=== PATIENT | male | born 1980 | race Caucasian/White ===

== ENCOUNTER 2017-01-25 10:52 | Emergency (ER) | payer SELFPAY ==
[2017-01-25] MEDS ORDERED: DIPH/PERTUSS(ACELL)/TETANUS VAC/PF 0.5 ML SYR (>=10YO) IM ONE (11:18)
[2017-01-25] MEDS ORDERED: LORAZEPAM INJ 2 MG/1 ML VIAL IV ONE (11:19)
[2017-01-25] MEDS ORDERED: LIDOCAINE 1%/EPINEPHRINE INJ 20 ML VIAL INJ ONE (11:21)
--- NOTE | 2017-01-25 11:27 | ER Document Report ---
ED General - General Stated Complaint: POSSIBLE SEIZURE Time Seen by Provider: 01/25/17 11:06 Mode of Arrival: Medic Information source: Patient, Relative, Emergency Med Personnel Notes: This is a 36-year-old man with a history of hypertension brought in by EMS after a witnessed seizure at home. Patient's parents state that they were driving home from [place] when the patient started complaining of numbness in both hands. While they were at home, the patient passed out and had tonic- clonic activity. There was a laceration to the left face. EMS was called to the home and the patient was found to be hypertensive with a blood pressure of 220/120. Patient was given labetalol IV in the field and he was transported here. Past medical history: Hypertension Medications: Lisinopril (ran out) Allergies: None Fam History: Positive for blood pressure, no history of seizure - HPI Onset: Just prior to arrival Onset/Duration: Sudden Quality of pain: No pain Severity: None Pain Level: Denies Associated symptoms: denies: Chest pain, Fever, Headache, Shortness of breath Exacerbated by: Denies Relieved by: Denies Similar symptoms previously: No Recently seen / treated by doctor: No Past Medical History - General Information source: Patient - Social History Smoking Status: Never Smoker Cigarette use (# per day): No Chew tobacco use (# tins/day): No Frequency of alcohol use: Occasional Drug Abuse: None Lives with: Family Family History: Reviewed & Not Pertinent Patient has suicidal ideation: No Patient has homicidal ideation: No - Medical History Medical History: Negative Surgical Hx: Negative Review of Systems - Review of Systems Constitutional: denies: Chills, Fever EENT: No symptoms reported Cardiovascular: No symptoms reported Respiratory: No symptoms reported Gastrointestinal: No symptoms reported Genitourinary: No symptoms reported Male Genitourinary: No symptoms reported Musculoskeletal: See HPI Skin: See HPI Hematologic/Lymphatic: No symptoms reported Neurological/Psychological: See HPI Physical Exam - Vital signs Vitals: Temp Resp BP Pulse Ox 98.8 F 28 H 158/116 H 98 01/25/17 10:58 01/25/17 10:58 01/25/17 10:58 01/25/17 10:58 Notes: Physical exam: GENERAL:36-year-old man, alert and oriented 3, diaphoretic and hypertensive HEAD: Left supraorbital laceration: A stellate laceration approximately 4 cm, irregular EYES: Pupils equal round and reactive to light, extraocular movements intact, sclera anicteric, conjunctiva are normal. ENT: TMs normal, nares patent, oropharynx clear without exudates. Moist mucous membranes. NECK:collar in place LUNGS: Breath sounds clear to auscultation bilaterally and equal. No wheezes rales or rhonchi. HEART: Regular rate and rhythm without murmurs, rubs or gallops. ABDOMEN: Soft, normoactive bowel sounds. No tenderness to palpation. No guarding, no rebound. No masses appreciated. EXTREMITIES: Normal range of motion, no pitting or edema. No clubbing or cyanosis. NEUROLOGICAL: Cranial nerves II through XII grossly intact. Normal speech, however 5, sensory grossly intact PSYCH: Normal mood, normal affect. SKIN: Bruising to the lower extremity. Course - Re-evaluation Re-evalutation: 01/25/17 20:22 Note: I had a extensive conversation with the patient. He initially denied having any significant alcohol intake. However, he did appear very jittery on arrival and this improved after IV Ativan. Later on in our conversation he did admit to drinking much before losing his job and he recently lost his job and has not been drinking as much. I have advised that he should follow-up at [facility] for detox and I have given him a prescription for Librium. Additionally, I have given him prescriptions for thiamine and folic acid. His blood pressure, he is previously been on lisinopril and I will continue this medicine. The patient is accompanied by his parents are at the bedside during my conversation. As far as the laceration: I was able to get a good approximation of the irregularly-shaped wound. I dressed the wound and have advised him to return in 7 days for suture removal. 01/25/17 20:24 - Vital Signs Vital signs: Temp Pulse Resp BP Pulse Ox 98.8 F 13 142/105 H 99 01/25/17 10:58 01/25/17 14:49 01/25/17 14:49 01/25/17 14:49 - Laboratory Result Diagrams: 01/25/17 11:00 01/25/17 11:00 Laboratory results interpreted by me: 01/25/17 01/25/17 01/25/17 11:00 11:00 12:15 RBC 4.01 L Hgb 12.9 L RDW 19.2 H Lymphocytes % 6.9 L Monocytes % 13.9 H Absolute Lymphocytes 0.4 L Sodium 134.9 L Chloride 97 L Glucose 187 H AST 136 H ALT 73 H Urine Protein 100 H Urine Ketones TRACE H Urine Blood SMALL H - Diagnostic Test Radiology reviewed: Image reviewed, Reports reviewed - The head and cervical spine show no acute injury - EKG Interpretation by Me Rate: Normal Rhythm: NSR P Waves: AV Dissociation - EKG shows normal sinus rhythm with a ventricular rate of 85, ST elevation consistent with early repolarization. QTC is 457. Obvious conduction delays Procedures - Laceration/Wound Repair Left Face Time completed: 17:00 Wound length (cm): 5 Wound's Depth, Shape: Into muscle, Irregular Laceration pre-procedure: Chloraprep applied, Shur-Clens applied Anesthetic type: 1% Lidocaine w/epi Volume Anesthetic (mLs): 5 Wound explored: Clean Wound Debrided: Minimal Wound Repaired With: Sutures Suture Size/Type: 6:0 Number of Sutures: 7 Layer Closure?: No Post-procedure wound care: Sterile dressing applied Post-procedure NV exam normal: Yes Complications: No Critical Care Note - Critical Care Note Total time excluding time spent on procedures (mins): 60 Discharge - Discharge Clinical Impression: New onset seizure, Facial laceration Hypertension Qualifiers: Hypertension type: essential hypertension Qualified Code(s): I10 - Essential ( primary) hypertension Clinical Impression: (Ruled Out): Procedure new-onset Condition: Stable Disposition: HOME, SELF-CARE Instructions: New Seizure ([facility]), High Blood Pressure ([facility]), Facial Laceration ( [facility]) Additional Instructions: Recommendations: As we discussed, I am concerned that the seizure was related to year history of drinking alcohol. I would like you to follow-up with [facility] health services Because I think the seizures due to alcohol withdrawal. [facility] which is across the street from the hospital. We have tried you in outpatient therapy In the Meantime: 1. Take Librium for symptoms of withdrawal: take 25 mg every 4 hours the first day (total of 5 tabs) take 25 mg every 6 hours the second day (total 4 tabs) take 25 mg every 8 hours the 3rd day take 25 mg every 12 hours the 4th day take 25 mg once on the 5th day. 2. Take Thiamine and folic acid 3. Continue with your blood pressure medication 4. Laceration: See the laceration instructions. He had 7 nylon sutures placed today. They will need to come out. Return to the ER in 7 days for suture removal. Return to the ER if the site becomes red, swollen, and a pus discharge or if you develop fever [facility] [address] [place], [place] Crisis Response: [phone] Outpatient services: [phone] Accepts self pay Prescriptions: Chlordiazepoxide HCl [Librium 25 mg Capsule] 1 cap PO QID #20 capsule Folic Acid 1 mg PO DAILY #30 tablet Lisinopril 10 mg PO DAILY #30 tablet Thiamine HCl [Thiamine 100 mg Tablet] 100 mg PO DAILY #30 tablet Forms: Follow up (Sutures/Kelsie) Referrals: FRED CABRAL MD [ACTIVE STAFF] - Follow up as needed (Number for a primary care doctor)
[2017-01-25 11:48] LABS: ABSOLUTE BASOPHILS # (AUTO) 0.1 10^3/uL (0.0-0.2); ABSOLUTE LYMPHOCYTES (AUTO) 0.4 10^3/uL (0.5-4.7); ABSOLUTE MONOCYTES (AUTO) 0.7 10^3/uL (0.1-1.4); ABSOLUTE NEUT (AUTO) 4.1 10^3/uL (1.7-8.2); EOSINOPHILS % (AUTO) 0.6 % (0-6); HEMATOCRIT 38.3 % (37.9-51.0); HEMOGLOBIN 12.9 g/dL (13.5-17.0); HGB HCT DIFFERENCE 0.4; LYMPHOCYTES % (AUTO) 6.9 % (13-45); MEAN CORPUSCULAR HGB CONC 33.6 g/dL (32.0-36.0); MEAN CORPUSCULAR VOLUME 96 fl (80-97); MONOCYTES % (AUTO) 13.9 % (3-13); RED BLOOD COUNT 4.01 10^6/uL (4.35-5.55); RED CELL DISTRIBUTION WIDTH 19.2 % (11.5-14.0); SEGMENTED NEUTROPHILS % (AUTO) 77.6 % (42-78); WHITE BLOOD COUNT 5.3 10^3/uL (4.0-10.5)
[2017-01-25 11:49] LABS: PROTHROMBIN TIME 13.4 SEC (11.4-15.4)
--- NOTE | 2017-01-25 12:05 | RADIOLOGY REPORT (SQ) ---
EXAM DESCRIPTION: CT CERVICAL SPINE WITHOUT COMPLETED DATE/TIME: 01/25/2017 11:43 am REASON FOR STUDY: head trauma COMPARISON: None. TECHNIQUE: Axial images acquired through the cervical spine without intravenous contrast. Images re viewed with lung, soft tissue and bone windows. Reconstructed coronal and sagittal MPR images review ed. Images stored on PACS. All CT scanners at this facility use dose modulation, iterative reconstruction, and/or weight based d osing when appropriate to reduce radiation dose to as low as reasonably achievable (ALARA). [facility]: Dose Right [facility]: CareDose [facility]: Dose Right [facility]: Teradose 4D [facility]: [employer] RADIATION DOSE: 79.11 mGy. LIMITATIONS: None. FINDINGS: ALIGNMENT: Anatomic. MINERALIZATION: Normal. VERTEBRAL BODIES: No fractures or dislocation. DISCS: No significant disc disease. FACETS, LATERAL MASSES, POSTERIOR ELEMENTS: No fractures. No dislocation. No acute findings. HARDWARE: None in the spine. VISUALIZED RIBS: No fractures. LUNG APICES AND SOFT TISSUES: No significant or acute findings. OTHER: No other significant finding. IMPRESSION: NO ACUTE OR SIGNIFICANT FINDINGS IN THE CERVICAL SPINE. TECHNICAL DOCUMENTATION: JOB ID: [id number] Quality ID # [id number]: Final reports with documentation of one or more dose reduction techniques (e.g., Au tomated exposure control, adjustment of the mA and/or kV according to patient size, use of iterative reconstruction technique) 2010 [employer]- All Rights Reserved
--- NOTE | 2017-01-25 12:06 | RADIOLOGY REPORT (SQ) ---
EXAM DESCRIPTION: CT HEAD WITHOUT COMPLETED DATE/TIME: 01/25/2017 11:40 am REASON FOR STUDY: new onset seizure, head trauma COMPARISON: None. TECHNIQUE: Axial images acquired through the brain without intravenous contrast. Images reviewed wi th bone, brain and subdural windows. Images stored on PACS. All CT scanners at this facility use dose modulation, iterative reconstruction, and/or weight based d osing when appropriate to reduce radiation dose to as low as reasonably achievable (ALARA). [facility]: Dose Right [facility]: CareDose [facility]: Dose Right [facility]: Teradose 4D [facility]: [employer] RADIATION DOSE: 64.61 mGy. LIMITATIONS: None. FINDINGS: VENTRICLES: Normal size and contour. CEREBRUM: No masses. No hemorrhage. No midline shift. Normal au/white matter differentiation. N o evidence for acute infarction. CEREBELLUM: No masses. No hemorrhage. No alteration of density. No evidence for acute infarction. EXTRAAXIAL SPACES: No fluid collections. No masses. ORBITS AND GLOBE: No intra- or extraconal masses. Normal contour of globe without masses. CALVARIUM: No fracture. PARANASAL SINUSES: There is complete opacification of the right maxillary sinus with outward bowing o f the medial wall suggestive of mucocele. There is less extensive of sinus disease involving the rig ht ethmoid and bilateral frontal sinuses. Minimal involvement of the left maxillary sinus. No air-f luid levels. SOFT TISSUES: Soft tissue injury left frontal scalp. OTHER: No other significant finding. IMPRESSION: SOFT TISSUE INJURY WITHOUT FRACTURE OR ACUTE INTRACRANIAL PROCESS IDENTIFIED. CHRONIC PARANASAL SINUS DISEASE DESCRIBED ABOVE WITH POSSIBLE RIGHT MAXILLARY SINUS MUCOCELE. TECHNICAL DOCUMENTATION: JOB ID: [id number] Quality ID # [id number]: Final reports with documentation of one or more dose reduction techniques (e.g., Au tomated exposure control, adjustment of the mA and/or kV according to patient size, use of iterative reconstruction technique) 2010 [employer]- All Rights Reserved
[2017-01-25 12:08] LABS: ALANINE AMINOTRANSFERASE 73 U/L (21-72); ALBUMIN 4.5 g/dL (3.5-5.0); ALKALINE PHOSPHATASE 68 U/L (38-126); ANION GAP 16 (5-19); ASPARTATE AMINO TRANSFERASE 136 U/L (17-59); BILIRUBIN,DIRECT 0.4 mg/dL (0.0-0.4); BILIRUBIN,TOTAL 0.9 mg/dL (0.2-1.3); BLOOD UREA NITROGEN 11 mg/dL (7-20); CALCIUM 9.6 mg/dL (8.4-10.2); CARBON DIOXIDE 22 mmol/L (22-30); CHLORIDE 97 mmol/L (98-107); GLUCOSE 187 mg/dL (75-110); MAGNESIUM 1.9 mg/dL (1.6-2.3); POTASSIUM 3.8 mmol/L (3.6-5.0); SODIUM 134.9 mmol/L (137-145); TOTAL PROTEIN 7.6 g/dL (6.3-8.2)
[2017-01-25 12:09] LABS: ALCOHOL < 10 mg/dL (NONE DETECTED)
[2017-01-25 12:47] LABS: APPEARANCE,URINE SLIGHTLY-CLOUDY; BILIRUBIN,URINE NEGATIVE (NEGATIVE); GLUCOSE, URINE NEGATIVE (NEGATIVE); KETONES,URINE TRACE mg/dL (NEGATIVE); LEUKOCYTE ESTERASE,URINE NEGATIVE (NEGATIVE); NITRITE,URINE NEGATIVE (NEGATIVE); PROTEIN,URINE 100 mg/dL (NEGATIVE); URINE SPECIFIC GRAVITY 1.008; UROBILINOGEN,URINE NEGATIVE mg/dL (<2.0)
[2017-01-25 13:02] LABS: URINE BARBITURATES SCREEN NEGATIVE; URINE METHADONE SCREEN NEGATIVE; URINE OPIATES LOW NEGATIVE; URINE PHENCYCLIDINE SCREEN NEGATIVE
[2017-01-25 15:08] VITALS: BP 142/105
--- NOTE | 2017-01-26 09:38 | EKG REPORT ---
SEVERITY:- ABNORMAL ECG - SINUS RHYTHM PROBABLE LEFT VENTRICULAR HYPERTROPHY ST ELEV, PROBABLE NORMAL EARLY REPOL PATTERN : Confirmed by: Ezequiel Tyler 26-Jan-2017 09:37:43
== END 2017-01-25 14:50 | disposition home or self-care (01) ==
LOC: ER 10:52
PROC: 0HQ1XZZ Repair Face Skin, External Approach (ICD-10-PCS; principal; 2017-01-25)
DX: R56.9 Unspecified convulsions (principal); I10 Essential (primary) hypertension; T46.4X6A Underdosing of angiotensin-converting-enzyme inhibitors, initial encounter; Z91.14 Patient's other noncompliance with medication regimen; S09.12XA Laceration of muscle and tendon of head, initial encounter; S01.81XA Laceration without foreign body of other part of head, initial encounter; S80.10XA Contusion of unspecified lower leg, initial encounter; W07.XXXA Fall from chair, initial encounter; Y93.89 Activity, other specified; Y92.009 Unspecified place in unspecified non-institutional (private) residence as the place of occurrence of the external cause; R61 Generalized hyperhidrosis; I45.9 Conduction disorder, unspecified
CPT/HCPCS: 93005; 99291; 90471; 96374; 36415; 80307 ×2; 83735; 85025; 85610; 80053; 81001; 70450; 72125; 90715; 93010; 12013; J3490; J2060